=== PATIENT | male | born 1960 | race Caucasian/White ===

== ENCOUNTER 2016-12-23 07:17 | Day surgery (SDC) | payer BC ==
[2016-12-23] MEDS ORDERED: LIDOCAINE HCL 1% MPF SOL ONE (08:35)
[2016-12-23] MEDS ORDERED: PROPOFOL 500 MG/50 ML EMU IV ONE (08:35)
[2016-12-23 09:28] VITALS: TEMP 97.8
[2016-12-23 09:30] VITALS: RESP 18
[2016-12-23 09:49] VITALS: BP 160/84; PULSE 64; O2SAT 95
== END 2016-12-23 09:58 | disposition home or self-care (01) ==
LOC: SURG 07:17
PROVIDERS: ATTEND Internal Medicine Gastroenterology
DX: Z12.11 Encounter for screening for malignant neoplasm of colon (principal); Z86.010 Personal history of colon polyps; Z80.0 Family history of malignant neoplasm of digestive organs; K57.30 Diverticulosis of large intestine without perforation or abscess without bleeding; K64.8 Other hemorrhoids; D12.0 Benign neoplasm of cecum
CPT/HCPCS: 45380; 99001; J2001; J2704

== ENCOUNTER 2017-05-19 12:12 | Emergency (ER) | payer BC ==
[2017-05-19 12:26] VITALS: BP 149/78; PULSE 59; RESP 18; TEMP 97.8; O2SAT 98
== END 2017-05-19 13:47 | disposition home or self-care (01) ==
LOC: ED 12:12
DX: S73.101A Unspecified sprain of right hip, initial encounter (principal); X50.1XXA Overexertion from prolonged static or awkward postures, initial encounter
CPT/HCPCS: 73502; 99282